=== PATIENT | female | born 1940 | race Two or more races ===

== ENCOUNTER 2019-03-28 10:16 | Emergency (ER) | payer MEDICARE, OTHER ==
[~2019-03-28] VITALS: Ht 160 cm; Wt 70.5 kg
[~2019-03-28 10:16] MED LIST: ESCI10TA45 PO; HYDR25TA4 PO; LIOT5TAB7 PO; LOSA100T57 PO; PANT-47 PO; PIOG15TA24 PO; SUL50S EACHEYE
[2019-03-28] MEDS ORDERED: morphine 4 MG/ML inj SYRINge IM ONE (11:15)
[2019-03-28] MEDS ORDERED: HYDROcodone/acetaminophen 10/325mg tab PO ONE (11:15)
[2019-03-28] MEDS ORDERED: HYDR-4353 PO (11:16)
[2019-03-28 11:51] VITALS: BP 173/96
== END 2019-03-28 11:53 | disposition home or self-care (01) ==
LOC: ER 10:17
DX: M54.31 Sciatica, right side (principal); M54.32 Sciatica, left side; E78.00 Pure hypercholesterolemia, unspecified; I10 Essential (primary) hypertension; E11.9 Type 2 diabetes mellitus without complications; Z98.61 Coronary angioplasty status; Z98.890 Other specified postprocedural states; Z88.5 Allergy status to narcotic agent; Z88.0 Allergy status to penicillin; Z88.8 Allergy status to other drugs, medicaments and biological substances; Z79.899 Other long term (current) drug therapy; Z60.2 Problems related to living alone
CPT/HCPCS: 96372; 99283; J2270

== ENCOUNTER 2019-08-20 05:54 | Day surgery (SDC) | payer MEDICARE, OTHER ==
[2019-08-18 14:38] LABS: BASOPHILS # (AUTO) 0.1 X10'3 (0-0.2); BASOPHILS % (AUTO) 0.9 % (0-1); EOSINOPHILS # (AUTO) 0.1 X10'3 (0-0.9); EOSINOPHILS % (AUTO) 1.9 % (0-6); HEMATOCRIT 34.7 % (35.0-45.0); HEMOGLOBIN 11.2 g/dl (12.0-16.0); LYMPHOCYTES # (AUTO) 2.2 X10'3 (1.1-4.8); LYMPHOCYTES % (AUTO) 31.5 % (21-51); MEAN CORPUSCULAR HEMOGLOBIN 27.2 PG (27.0-31.0); MEAN CORPUSCULAR HGB CONC 32.2 g/dL (33.0-36.5); MEAN CORPUSCULAR VOLUME 84.5 FL (78-98); MEAN PLATELET VOLUME 7.9 FL (7.4-10.4); MONOCYTES # (AUTO) 0.6 X10'3 (0-0.9); MONOCYTES % (AUTO) 7.9 % (2-12); NEUTROPHILS # (AUTO) 4.1 X10'3 (1.8-7.7); NEUTROPHILS % (AUTO) 57.8 % (42-75); PLATELET COUNT 285 X10'3 (140-440); RED BLOOD COUNT 4.11 X10'6 (4.20-5.60); RED CELL DISTRIBUTION WIDTH 17.2 % (11.5-14.5); WHITE BLOOD COUNT 7.1 X10'3 (4.5-11.0)
[2019-08-18 14:50] LABS: PARTIAL THROMBOPLASTIN TIME 25 SECONDS (22-32)
[2019-08-18 15:00] LABS: ALANINE AMINOTRANSFERASE 21 U/L (12-78); ALKALINE PHOSPHATASE 103 IU/L (46-116); ANION GAP 9 (8-16); ASPARTATE AMINO TRANSFERASE 23 U/L (10-37); BILIRUBIN,TOTAL 0.2 MG/DL (0.1-1.0); BLOOD UREA NITROGEN 28 MG/DL (7-18); BUN/CREATININE RATIO 22.6 (6.6-38.0); CALCIUM 10.3 MG/DL (8.5-10.1); CHLORIDE 105 MMOL/L (99-107); CREATININE 1.24 MG/DL (0.40-0.90); GLUCOSE 100 MG/DL (70-104); SODIUM 142 MMOL/L (135-145); TOTAL CARBON DIOXIDE 28.3 MMOL/L (24-32); TOTAL PROTEIN 8.1 G/DL (6.4-8.2); eGFR 42 ML/MIN
[2019-08-20] VITALS (14 sets, daily range): BP systolic 129–167; BP diastolic 48–83
[~2019-08-20] VITALS: Ht 160 cm; Wt 68.4 kg
[~2019-08-20 05:54] MED LIST changes: +LIOT5TAB10 PO; -LIOT5TAB7 PO
[2019-08-20] MEDS ORDERED: nitroGLYCERIN 0.4mg SUBLingual tab SL PRN ×2 (06:20→10:00)
[2019-08-20] MEDS ORDERED: glucagon, human recombinant 1mg kit SUBCUT PRN (06:20)
[2019-08-20] MEDS ORDERED: dextrose 50%-water 50ml dispensing syringe IV PRN ×2 (06:20)
[2019-08-20] MEDS ORDERED: insulin Lispro (HumaLOG) vial - multi-dose SQ SCH (06:20)
[2019-08-20] MEDS ORDERED: dextrose ORAL solution 15 GM/59 ML bottle PO PRN ×2 (06:20)
[2019-08-20] MEDS ORDERED: MESSAGE TO PHARMACY PO ONE (06:20)
[2019-08-20] MEDS ORDERED: normal saline 1,000 ML IV SCH (06:25)
[2019-08-20] MEDS ORDERED: LORazepam 0.5 MG tablet PO PRN (06:25)
[2019-08-20] MEDS ORDERED: diphenhydrAMINE 25mg capsule PO PRN (06:25)
[2019-08-20] MEDS ORDERED: OMEG-182 (06:52)
[2019-08-20] MEDS ORDERED: HYDR-3972 PO (06:52)
[2019-08-20] MEDS ORDERED: ASPI-1265 PO (06:52)
[2019-08-20] MEDS ORDERED: MULT1TAB74 PO (06:52)
[2019-08-20] MEDS ORDERED: METF-436 PO (06:52)
[2019-08-20] MEDS ORDERED: LORA-512 PO (06:52)
[2019-08-20] MEDS ORDERED: ROSU10TA2 PO (06:52)
[2019-08-20] MEDS ORDERED: CHOL50004 PO (06:52)
[2019-08-20] MEDS ORDERED: GLUC100017 (06:52)
[2019-08-20] MEDS ORDERED: fentaNYL/PF 50MCG/1 ML 2ML syringe ONE (08:30)
[2019-08-20] MEDS ORDERED: midazolam 2 mg/2 ml injection ONE (08:30)
[2019-08-20] MEDS ORDERED: LIDOcaine 1% (10mg/ml)w/preservative injection 20ml MDV ONE (08:31)
[2019-08-20] MEDS ORDERED: iohexol 350 MG/ML 50ML vial IV ONE (08:31)
[2019-08-20] MEDS ORDERED: iohexol 350MG/ML 100ml bottle IV ONE (08:31)
[2019-08-20] MEDS ORDERED: nitroGLYCERIN-Tridil 50MG/D5W 250 ML IV ONE (09:22)
[2019-08-20] MEDS ORDERED: metoprolol tartrate 1mg/ml inj IV ONE (09:27)
[2019-08-20] MEDS ORDERED: OXAZEpam 15mg capsule PO PRN (10:00)
[2019-08-20] MEDS ORDERED: ondansetron/PF 4mg/2ml inj IV PRN (10:00)
[2019-08-20] MEDS ORDERED: HYDROcodone/acetaminophen 5mg/325mg tablet PO PRN (10:00)
[2019-08-20] MEDS ORDERED: normal saline 1000ml 1,000 ML IV SCH (10:00)
[2019-08-20] MEDS ORDERED: amLODIPine 2.5mg tablet PO ONE (10:05)
[2019-08-20] MEDS ORDERED: insulin glargine (Lantus) pen - multi-dose SQ SCH (21:00)
== END 2019-08-20 15:55 | disposition home or self-care (01) ==
LOC: SSTAY O 05:54
PROVIDERS: ATTEND Internal Medicine Cardiovascular Disease
DX: R94.39 Abnormal result of other cardiovascular function study (principal); I25.10 Atherosclerotic heart disease of native coronary artery without angina pectoris; E11.9 Type 2 diabetes mellitus without complications; J44.9 Chronic obstructive pulmonary disease, unspecified; E78.5 Hyperlipidemia, unspecified; I10 Essential (primary) hypertension; E66.9 Obesity, unspecified; Z68.26 Body mass index [BMI] 26.0-26.9, adult; E03.9 Hypothyroidism, unspecified; Z88.0 Allergy status to penicillin; Z88.5 Allergy status to narcotic agent; Z88.8 Allergy status to other drugs, medicaments and biological substances; Z87.891 Personal history of nicotine dependence; Z79.01 Long term (current) use of anticoagulants
CPT/HCPCS: 36415; 71046; 80053; 82948; 85025; 85610; 85730; 93005; 93459; 99152; 99153; C1769; J1644; J2001; J2250; J3010; J7030; Q0163; Q9967; 93458; A4620; A6258; C1760; J3490

== ENCOUNTER 2020-09-09 11:07 | Emergency (ER) | payer MEDICARE, OTHER ==
[~2020-09-09] VITALS: Ht 160 cm; Wt 66.8 kg
[~2020-09-09 11:07] MED LIST changes: +ASPI-1265 PO; +CHOL50004 PO; +GLUC100017; +HYDR-3972 PO; +LORA-512 PO; +METF-436 PO; +MULT-620 PO; +OMEG-182; -PIOG15TA24 PO; +PIOG15TA70 PO; +ROSU10TA2 PO; -SUL50S EACHEYE
[2020-09-09 11:33] LABS: BASOPHILS # (AUTO) 0.1 X10'3 (0-0.2); BASOPHILS % (AUTO) 1.1 % (0-1); EOSINOPHILS # (AUTO) 0.4 X10'3 (0-0.9); EOSINOPHILS % (AUTO) 6.6 % (0-6); HEMATOCRIT 37.8 % (35.0-45.0); HEMOGLOBIN 12.3 g/dl (12.0-16.0); LYMPHOCYTES # (AUTO) 2.3 X10'3 (1.1-4.8); LYMPHOCYTES % (AUTO) 35.5 % (21-51); MEAN CORPUSCULAR HEMOGLOBIN 29.6 PG (27.0-31.0); MEAN CORPUSCULAR HGB CONC 32.4 g/dL (33.0-36.5); MEAN CORPUSCULAR VOLUME 91.2 FL (78-98); MONOCYTES # (AUTO) 0.6 X10'3 (0-0.9); MONOCYTES % (AUTO) 9.6 % (2-12); NEUTROPHILS # (AUTO) 3.1 X10'3 (1.8-7.7); NEUTROPHILS % (AUTO) 47.2 % (42-75); PLATELET COUNT 265 X10'3 (140-440); RED BLOOD COUNT 4.14 X10'6 (4.20-5.60); RED CELL DISTRIBUTION WIDTH 14.6 % (11.5-14.5); WHITE BLOOD COUNT 6.5 X10'3 (4.5-11.0)
[2020-09-09 11:50] LABS: ALANINE AMINOTRANSFERASE 21 U/L (12-78); ALBUMIN 4.1 G/DL (3.4-5.0); ALBUMIN/GLOBULIN RATIO 1.1 (1.1-1.5); ALKALINE PHOSPHATASE 84 IU/L (46-116); ANION GAP 7 (8-16); ASPARTATE AMINO TRANSFERASE 31 U/L (10-37); BILIRUBIN,TOTAL 0.5 MG/DL (0.1-1.0); BLOOD UREA NITROGEN 11 MG/DL (7-18); BUN/CREATININE RATIO 10.2 (6.6-38.0); CALCIUM 10.1 MG/DL (8.5-10.1); CHLORIDE 105 MMOL/L (99-107); CREATININE 1.08 MG/DL (0.40-0.90); GLUCOSE 121 MG/DL (70-104); POTASSIUM 4.2 MMOL/L (3.5-5.1); SODIUM 139 MMOL/L (135-145); eGFR 49 ML/MIN
[2020-09-09] MEDS ORDERED: HYDROchlorothiazide 25mg tablet PO ONE (12:55)
[2020-09-09] MEDS ORDERED: losartan 50mg tablet PO SCH (12:57)
[2020-09-09 13:11] VITALS: BP_DIAS 76
[2020-09-09 13:13] VITALS: BP_SYST 171
== END 2020-09-09 13:37 | disposition home or self-care (01) ==
LOC: ER 11:07
DX: I10 Essential (primary) hypertension (principal); M79.602 Pain in left arm; E78.00 Pure hypercholesterolemia, unspecified; D64.9 Anemia, unspecified; E11.9 Type 2 diabetes mellitus without complications; Z98.890 Other specified postprocedural states; Z79.899 Other long term (current) drug therapy; Z88.0 Allergy status to penicillin; Z88.5 Allergy status to narcotic agent; Z88.8 Allergy status to other drugs, medicaments and biological substances
CPT/HCPCS: 36415; 71045; 80053; 83880; 84484; 85025; 93005; 99285

== ENCOUNTER 2025-06-08 11:55 | Emergency (ER) | payer MEDICARE, OTHER ==
[~2025-06-08] VITALS: Ht 157.5 cm; Wt 62.3 kg
[~2025-06-08 11:55] MED LIST changes: -LOSA100T57 PO; +LOSA100T58 PO
--- NOTE | 2025-06-08 14:10 | RADIOLOGY REPORT ---
CLINICAL INDICATION: fall LEFT HIP TECHNIQUE: AP view of the pelvis and AP and frogleg lateral views of the left hip were performed. DI HIP UNILATERAL 2 VIEWS Comparison: None FINDINGS/IMPRESSION: 1. Diffuse osteopenia without evidence of acute fracture of the pelvis or hips. 2. Bilateral total hip arthroplasties without evidence of periprosthetic fracture, loosening, disloca tion, or other complication. The femoral stem of the right hip arthroplasty is not fully imaged here. 3. Extensive atherosclerotic vascular disease. 4. Advanced lower lumbar degenerative disc disease.
--- NOTE | 2025-06-08 14:13 | RADIOLOGY REPORT ---
INDICATION: fall COMPARISON: None TECHNIQUE: 4 views of the lumbar spine were obtained. FINDINGS: The lumbar vertebral alignment is normal. Severe multilevel degenerative changes most severe at L3-L4 through L5-S1 with moderate to severe fady ral foraminal spinal canal stenosis. Chronic compression fracture of the L3 vertebral body . Extensi ve atherosclerosis. No acute fracture, vertebral compression deformity or aggressive osseous lesions. The paravertebral soft tissues are grossly unremarkable. IMPRESSION: No acute fracture or subluxation.
--- NOTE | 2025-06-08 14:16 | Physician Documentation ---
History of Present Illness ~ Chief Complaint: Mechanical Fall Stated Complaint: FALL Time Seen by MD: 13:09 Primary Medical Doctor: MARY INGRAM This 84-year-old female presents for a fall and evaluation for pain. Denies any blood thinners or loss of consciousness. Seen ambulating without any difficulty and able to transfer without difficulty. Day of Fall: Jun 08, 2025 Medication Reconciliation Allergies: Coded Allergies: morphine (Verified Allergy, Unknown, 07/19/16) Penicillins (Verified Adverse Reaction, Mild, ANXIETY, 07/18/17) promethazine HCl (Verified Adverse Reaction, Mild, ANXIETY, 07/18/17) Scheduled Aspirin (Aspirin), 1 TAB.CHEW PO DAILY, (Reported) Cholecalciferol (Vitamin D3), 2 TAB PO DAILY, (Reported) Escitalopram Oxalate* (Lexapro*), 10 MG PO DAILY, (Reported) Hydrochlorothiazide (Hydrochlorothiazide), 1 TAB PO DAILY, (Reported) Hydrocodone Bit/Acetaminophen (Hydrocodon-Acetaminophn 10-325 tablet), 1 TAB PO QID PRN, (Reported) Liothyronine Sodium (Liothyronine Sodium), 2 TAB PO DAILY, (Reported) Loratadine* (Alavert*), 1 TAB PO DAILY, (Reported) Losartan Potassium (Losartan Potassium), 1 TAB PO HS, (Reported) Metformin Hcl (Metformin Hcl), 3 TAB PO DAILY, (Reported) Multivitamins (Multivitamins), 1 TAB PO DAILY, (Reported) Pantoprazole Sodium (PROTONIX tablet), 1 TAB PO DAILY, (Reported) Pioglitazone Hcl (Pioglitazone), 15 MG PO DAILY, (Reported) Rosuvastatin Calcium* (Crestor*), 1 TAB PO DAILY, (Reported) Miscellaneous Medications Glucosamine Sulfate 2Kcl (Glucosamine), (Reported) [place]-3S/Dha/Epa/Fish Oil (Fish Oil 1,200 mg Softgel), (Reported) Past Medical History Past Medical History: High Cholesterol, Hypertension, Anemia, Diabetes, Thyroid (unspecified) Past Surgical History: angioplasty, orthopedic surgeries Alcohol Use: None Drug Use: none Lives with: Alone Lives In: Home Occupation: retired Physical Exam Vital Signs: Heart Rate: 107, Respiratory Rate: 16, BP: 136/83, Pulse Oximetry: 95, Weight: 62.270 Physical Exam General: Alert, no apparent distress. HEENT: PERRL, EOMI, no injection, moist mucous membranes. Mild tenderness in the posterior right aspect back: Tender to lumbar region via palpation Respiratory: Lungs clear, no respiratory distress. Chest: No accessory muscle use. Psychiatric: Normal mood and affect. Skin: Normal color, warm and dry. No edema, no ecchymosis. Progress Results/Orders Results/Orders Orders - CLAUDY BLEDSOE NP Lumbar Spine Limited (06/08/25 13:44) Hip Unilateral 2 Views (06/08/25 13:47) Completed Orders - CLAUDY BLEDSOE NP Lumbar Spine Limited (06/08/25 13:44) Hip Unilateral 2 Views (06/08/25 13:47) Hydrocodone/Apap 10/325 ([place] 10/325mg (06/08/25 14:20) Medications Received in ER Medications (Trade) Dose Ordered Sig/Lexx Route PRN Reason Start Time Stop Time Status Last Admin Dose Admin ([place] 10/325mg tab) 1 tab ONCE ONCE PO 06/08/25 14:20 06/08/25 14:21 DC 06/08/25 14:48 1 TAB Vital Signs 06/08/25 06/08/25 12:05 15:16 Pulse 107 78 Resp 16 14 B/P (MAP) 136/83 148/87 Pulse Ox 95 96 Medical Decision Making Findings Evaluated patient's x-rays and there was no signs of fractures the acute nature Patient is take ibuprofen or Tylenol for pain and inflammation and follow up with primary care Differential Dx:Considerations: Include: Closed head injury, Cardiac injury, Fr acture(s), Intraabdominal injury, Pneumothorax, Cerebral contusion, Pulmonary contusion, Spine injury, Tracheal injury, Urological injury, Vascular injury, Abrasion(s), Contusion(s), Foreign body(s), Hematoma(s), Laceration(s), Encephalopathy, Other Departure Disposition: 01 HOME / SELF CARE / HOMELESS Impression: Primary Impression: Fall Condition: Stable Discharge Instructions: Fall Prevention in the Home, Adult, [id number] Referrals: NO PRIMARY CARE PROVIDER (PCP) Signature Scribe Signature: h Attestation: Scribed for Claudy Bledsoe Casting Agent by Claudy Bustamante NP . 06/08/25 17:06 CLAUDY BLEDSOE NP Jun 08, 2025 14:16
[2025-06-08] MEDS: HYDROcodone/acetaminophen 10/325mg tab PO ONE (14:48)
[2025-06-08 15:16] VITALS: BP 148/87; PULSE 78; RESP 14; O2SAT 96
== END 2025-06-08 15:19 | disposition home or self-care (01) ==
LOC: ER 11:56
DX: M25.552 Pain in left hip (principal); M54.50 Low back pain, unspecified; E11.9 Type 2 diabetes mellitus without complications; I10 Essential (primary) hypertension; E78.00 Pure hypercholesterolemia, unspecified; Z88.0 Allergy status to penicillin; Z88.5 Allergy status to narcotic agent; Z88.6 Allergy status to analgesic agent; W19.XXXA Unspecified fall, initial encounter; Y93.89 Activity, other specified; Y92.89 Other specified places as the place of occurrence of the external cause; Y99.8 Other external cause status
CPT/HCPCS: 72100; 73502; 99284